=== PATIENT | female | born 1995 | race Caucasian/White ===

== ENCOUNTER → 2022-06-25 | Emergency (ER) | payer OTHER ==
[2022-06-25 17:30] VITALS: BP 104/68; PULSE 78; RESP 18; TEMP 98.2; BMI 28.3
== END ==
LOC: JER 17:14
DX: R51.9 Headache, unspecified (principal)
CPT/HCPCS: 99281-25

== ENCOUNTER 2025-09-08 06:07 | Day surgery (SDC) | payer OTHER ==
[2025-09-05 15:23] VITALS: BMI 29.5
[2025-09-08] MEDS ORDERED: METHYLENE BLUE 1% 10 MG/1 ML VIAL ONE (07:22)
[2025-09-08] MEDS ORDERED: BUPIVACAINE HCL/PF 0.25% (2.5MG/ML) 10 ML VIAL ONE (07:22)
[2025-09-08] MEDS ORDERED: PROPOFOL 20 ML ONE ×3 (07:28→09:42)
[2025-09-08] MEDS ORDERED: MIDAZOLAM HCL 2 MG/2 ML SINGLE DOSE VIAL ONE (07:28)
[2025-09-08] MEDS ORDERED: LIDOCAINE HCL/PF 2% SDV 5ML VIAL ONE (07:29)
[2025-09-08] MEDS ORDERED: ROCURONIUM BROMIDE 50 MG/5 ML SYRINGE ONE ×2 (07:33→09:48)
[2025-09-08] MEDS ORDERED: ACETAMINOPHEN INJECTION 100 ML ONE (07:39)
[2025-09-08] MEDS ORDERED: ONDANSETRON 4 MG/2 ML VIAL IVPUSH PRN (07:53)
[2025-09-08] MEDS ORDERED: LACTATED RINGERS SOLUTION 1,000 ML IV SCH ×2 (08:00→21:00)
[2025-09-08] MEDS ORDERED: DEXAMETHASONE SOD PHOSPHATE 4 MG/1 ML VIAL ONE (08:34)
[2025-09-08] MEDS ORDERED: HYDROmorphone HCL/PF 1 MG/ML VIAL ONE (09:44)
[2025-09-08] MEDS ORDERED: ONDANSETRON 4 MG/2 ML VIAL ONE (10:40)
[2025-09-08] MEDS ORDERED: SUGAMMADEX SODIUM 200 MG/2 ML VIAL ONE (10:51)
[2025-09-08] MEDS: BUPIVACAINE HCL/PF 0.25% (2.5MG/ML) 10 ML VIAL IJ ONE (11:15)
[2025-09-08] MEDS ORDERED: FENTANYL CITRATE/PF 50 MCG/ML VIAL ONE ×3 (11:47→12:22)
[2025-09-08 13:10] VITALS: RESP 16; TEMP 97.5
[2025-09-08 15:36] VITALS: BP 98/64; PULSE 90
[2025-09-08] MEDS ORDERED: ACETAMINOPHEN 500 MG TABLET (FP) PO PRN (20:52)
[2025-09-08] MEDS ORDERED: ONDANSETRON *ODT* 4 MG TABLET SL PRN (20:55)
== END 2025-09-08 14:55 | disposition home or self-care (01) ==
LOC: FASU 06:07
PROVIDERS: ATTEND Plastic Surgery
PROC: 0HBV0ZZ Excision of Bilateral Breast, Open Approach (ICD-10-PCS; principal; 2025-09-08 08:51)
DX: N62 Hypertrophy of breast (principal)
CPT/HCPCS: 81025; 88305-TC; 94760